=== PATIENT | female | born 1995 | race Two or more races ===

== ENCOUNTER 2017-06-17 07:26 | Inpatient (IN) | payer SELFPAY ==
[2017-06-17] MEDS ORDERED: OXYTOCIN 30 UNIT/500 ML PREMIX 500 ML IV ×2 (10:45→20:00)
[2017-06-17] MEDS ORDERED: LIDOCAINE 1% PF 30 ML VIAL. INJ (10:45)
[2017-06-17] MEDS ORDERED: IBUPROFEN 800 MG TABLET. PO ×2 (10:45→20:00)
[2017-06-17] MEDS ORDERED: 0.9 % SODIUM CHLORIDE 10 ML DISP.SYRIN. IV ×2 (10:45→20:00)
[2017-06-17] MEDS ORDERED: fentaNYL PF VIAL 100 MCG/2 ML VIAL IV (10:45)
[2017-06-17 11:08] LABS: ADD MAN DIFF? NO
[2017-06-17 11:15] LABS: BASO % 0 % (0-3); EOS # 0.1 x10^3/uL (0.0-0.7); EOS % 1 % (0-3); HEMATOCRIT 40.2 % (36.0-47.0); HEMOGLOBIN 13.7 g/dL (12.0-15.5); LYMPH # 1.7 x10^3/uL (1.0-4.8); LYMPH % 14 % (24-48); MEAN CORPUSCULAR HEMOGLOBIN 31 pg (25-35); MEAN CORPUSCULAR HGB CONC 34 g/dL (31-37); MEAN CORPUSCULAR VOLUME 91 fL (79-100); MONO # 0.6 x10^3/uL (0.0-1.1); MONO % 4 % (0-9); NEUT # 10.3 x10^3uL (1.8-7.7); NEUT % 81 % (31-73); PLATELET COUNT 208 x10^3/uL (140-400); RED BLOOD COUNT 4.42 x10^6/uL (3.50-5.40); RED CELL DISTRIBUTION WIDTH 13.7 % (11.5-14.5); WHITE BLOOD COUNT 12.7 x10^3/uL (4.0-11.0)
[2017-06-17] MEDS: IV RINGERS,LACTATED 1000ML 1,000 ML IV ×2 (14:41→14:43)
[2017-06-17] MEDS ORDERED: L&D EPIDURAL 50 ML SYRINGE. EP (17:00)
[2017-06-17] MEDS ORDERED: L&D EPIDURAL SYRINGE 50 ML EP ×2 (17:01→17:45)
[2017-06-17] MEDS ORDERED: IV RINGERS,LACTATED 1000ML 1,000 ML IV (17:40)
[2017-06-17] MEDS ORDERED: ATROPINE 0.5 MG/5 ML DISP.SYRIN. IV (17:45)
[2017-06-17] MEDS ORDERED: fentaNYL PF VIAL 100 MCG/2 ML VIAL EPI (17:45)
[2017-06-17] MEDS ORDERED: NALBUPHINE 10 MG/ML AMPUL. IV (17:45)
[2017-06-17] MEDS ORDERED: BUPIVACAINE MPF 0.25% 10 ML VIAL. EPI (17:45)
[2017-06-17] MEDS ORDERED: PHENYLEPHRINE in 0.9% NACL PF 1 MG/10 ML SYRINGE. IV (17:45)
[2017-06-17] MEDS ORDERED: NALOXONE 0.4 MG/ML VIAL. IV (17:45)
[2017-06-17] MEDS ORDERED: ONDANSETRON PF 4 MG/2 ML VIAL. IV (17:45)
[2017-06-17] MEDS ORDERED: diphenhydrAMINE 50 MG/ML VIAL IV (17:45)
[2017-06-17] MEDS ORDERED: ePHEDrine PF IN SALINE 50 MG/5 ML DISP.SYRIN IV (17:45)
[2017-06-17] MEDS ORDERED: ROPIVacaine 0.2% IN 0.9%NACL PF 40 MG/20 ML DISP.SYRIN. EPI (17:45)
[2017-06-17] MEDS ORDERED: PROCHLORPERAZINE 10 MG/2 ML VIAL. IV (17:45)
[2017-06-17] MEDS: OXYTOCIN 30 UNIT/500 ML PREMIX 500 ML IV (17:54)
[2017-06-17] MEDS ORDERED: MMR per PROTOCOL. MC (20:00)
[2017-06-17] MEDS ORDERED: ZOLPIDEM 5 MG TABLET. PO (20:00)
[2017-06-17] MEDS ORDERED: diphenhydrAMINE HCL 25 MG CAPSULE PO (20:00)
[2017-06-17] MEDS ORDERED: oxyCODONE/APAP 5/325 1 TAB TABLET PO (20:00)
[2017-06-17] MEDS ORDERED: MAGNESIUM HYDROXIDE 2,400 MG/30 ML ORAL.SUSP. PO (20:00)
[2017-06-17] MEDS ORDERED: PHENYLEPH/MINERAL OIL/PETROLAT RECTAL OINTMENT 28GM TUBE. RC (20:00)
[2017-06-17] MEDS ORDERED: BENZOCAINE 20% TOPICAL AEROSOL SPRAY 57GM CAN. TP (20:00)
[2017-06-17] MEDS ORDERED: ACETAMINOPHEN 325 MG TABLET. PO (20:00)
[2017-06-17] MEDS ORDERED: SIMETHICONE 80 MG TAB.CHEW PO (20:00)
[2017-06-17] MEDS ORDERED: HYDROCORTISONE 1% TOPICAL OINTMENT 30GM TUBE. TP (20:00)
[2017-06-17] MEDS ORDERED: MAG HYDROX/ALUMINUM HYD/SIMETH 30 ML ORAL.SUSP PO (20:00)
[2017-06-18 06:32] LABS: ADD MAN DIFF? NO
[2017-06-18 06:38] LABS: BASO % 0 % (0-3); EOS # 0.1 x10^3/uL (0.0-0.7); EOS % 1 % (0-3); HEMATOCRIT 37.5 % (36.0-47.0); HEMOGLOBIN 12.8 g/dL (12.0-15.5); LYMPH # 2.2 x10^3/uL (1.0-4.8); LYMPH % 17 % (24-48); MEAN CORPUSCULAR HEMOGLOBIN 31 pg (25-35); MEAN CORPUSCULAR HGB CONC 34 g/dL (31-37); MEAN CORPUSCULAR VOLUME 91 fL (79-100); MONO # 0.9 x10^3/uL (0.0-1.1); MONO % 7 % (0-9); NEUT # 10.2 x10^3uL (1.8-7.7); NEUT % 76 % (31-73); PLATELET COUNT 179 x10^3/uL (140-400); RED BLOOD COUNT 4.14 x10^6/uL (3.50-5.40); RED CELL DISTRIBUTION WIDTH 13.8 % (11.5-14.5); WHITE BLOOD COUNT 13.4 x10^3/uL (4.0-11.0)
[2017-06-18 07:38] LABS: RPR Non Reactive (Non Reactive)
[2017-06-18] MEDS: FERROUS SULFATE 325 MG TABLET. PO (08:00)
[2017-06-19] MEDS: DOCUSATE SODIUM 100 MG CAPSULE. PO (09:05)
== END 2017-06-19 17:55 | disposition home or self-care (01) | DRG 775 ==
LOC: 3 SO LND 07:26
PROC: 10E0XZZ Delivery of Products of Conception, External Approach (ICD-10-PCS; principal; 2017-06-17)
PROC: 0HQ9XZZ Repair Perineum Skin, External Approach (ICD-10-PCS; 2017-06-17)
PROC: 3E0R3BZ Introduction of Anesthetic Agent into Spinal Canal, Percutaneous Approach (ICD-10-PCS; 2017-06-17)
PROC: 00HU33Z Insertion of Infusion Device into Spinal Canal, Percutaneous Approach (ICD-10-PCS; 2017-06-17)
PROC: 10907ZC Drainage of Amniotic Fluid, Therapeutic from Products of Conception, Via Natural or Artificial Opening (ICD-10-PCS; 2017-06-17)
DX: O32.6XX0 Maternal care for compound presentation, not applicable or unspecified (principal); O70.0 First degree perineal laceration during delivery; Z37.0 Single live birth; Z3A.39 39 weeks gestation of pregnancy
CPT/HCPCS: 36415; 85025; 86593; 86850; 86900; 86901; G0378; G0379; J2590; J7120